=== PATIENT | male | born 1990 | race Caucasian/White ===

== ENCOUNTER 2021-03-04 18:13 | Emergency (ER) | payer OTHER, SELFPAY ==
[2021-03-04] VITALS (14 sets, daily range): BP systolic 183–216; BP diastolic 84–104; PULSE 91–117; RESP 18; O2SAT 97–100; BMI 25.2
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
--- NOTE | 2021-03-04 18:29 | DI.RAD.S_ITS ---
PROCEDURE: XR CHEST 1V INDICATIONS: trauma TECHNIQUE: One view of the chest was acquired. COMPARISON: None. FINDINGS: Surgical changes and devices: None. Lungs and pleura: Lungs are clear. No pleural effusions or pneumothorax. Mediastinum: Mediastinal contours appear normal. Heart size is normal. Bones and chest wall: No suspicious bony lesions. No displaced fractures identified. Overlying soft tissues appear unremarkable. IMPRESSION: 1. No definite acute traumatic abnormality. Dictated by: Ozzy Finch M.D. on 03/04/2021 at 18:53 Approved by: Ozzy Finch M.D. on 03/04/2021 at 18:55
--- NOTE | 2021-03-04 18:31 | DI.US.S_ITS ---
PROCEDURE: US PERIPH VENOUS LOW EXTREM RT INDICATIONS: PAIN, SWELLING, AND TRAUMA 4 DAYS AGO TECHNIQUE: Real-time imaging, as well as color and pulse Doppler interrogation, were performed of the lower extremity deep veins from the inguinal ligament to the popliteal fossa. COMPARISON: None. FINDINGS: The common femoral, femoral and popliteal veins are normally compressible, and free of intraluminal thrombus. Color and pulse Doppler demonstrate normal phasic intraluminal flow. There is normal augmentation response to distal compression maneuver. IMPRESSION: 1. No evidence of deep venous thrombosis in the right lower extremity. Dictated by: Ozzy Finch M.D. on 03/04/2021 at 19:57 Approved by: Ozzy Finch M.D. on 03/04/2021 at 19:58
[2021-03-04] MEDS: TET,DIPH,PERTUSS(ACELL),VAC/PF 0.5 ML SYRINGE IM (18:46)
[2021-03-04] MEDS: SODIUM CHLORIDE 0.9% 1,000 ML 125 ML IV (18:46)
[2021-03-04 19:08] LABS: Add Manual Diff / Slide Review NO; Basophils Absolute Auto 100 /uL (0-100); Basophils Percent Auto 0.5 % (0-2); Eosinophils Absolute Auto 200 /uL (0-450); Eosinophils Percent Auto 1.9 % (2-4); Hematocrit 31.2 % (41-53); Hemoglobin 10.4 g/dL (13.5-17.5); Lymphocytes Absolute Auto 1300 /uL (1100-4500); Lymphocytes Percent Auto 11.9 % (25-40); Mean Corpuscular HGB Conc 33.4 % (30-36); Mean Corpuscular Hemoglobin 27.7 PG (26-34); Mean Corpuscular Volume 82.9 fL (80-100); Monocytes Absolute Auto 900 /uL (0-900); Monocytes Percent Auto 8.1 % (3-14); Neutrophils Absolute Auto 8700 /uL (1500-7000); Neutrophils Percent Auto 77.6 % (50-75); Platelet Count 297 X10^3/uL (150-400); Red Blood Cell Count 3.77 X10^6/uL (4.5-5.9); Red Cell Distribution Width 12.9 % (11.6-14.8); White Blood Cell Count 11.2 X10^3/uL (4.5-11.0)
[2021-03-04 19:12] LABS: HEMOLYSIS < 15 (0-50)
[2021-03-04 19:17] LABS: Alanine Aminotransferase 17 IU/L (<50); Albumin 3.8 g/dL (3.5-5.0); Albumin Globulin Ratio 1.3 (1.0-2.8); Alkaline Phosphatase 59 U/L (38-126); Aspartate Aminotransferase 19 IU/L (17-59); BUN Creatinine Ratio 12.2 (6-22); Bilirubin Total 0.4 mg/dL (0.2-1.3); Blood Urea Nitrogen 30 mg/dL (9-20); Calcium 9.2 mg/dL (8.4-10.2); Carbon Dioxide 27 mmol/L (22-32); Chloride 97 mmol/L (98-107); Creatine Kinase 143 U/L (55-170); Estimated Glomerular Filt Rate 30.6 mL/min (>60); Globulin 2.9 g/dL (1.7-4.1); Glucose 150 mg/dL (70-100); Potassium 3.6 mmol/L (3.4-5.1); Sodium 133 mmol/L (137-145); Total Protein 6.7 g/dL (6.3-8.2)
[2021-03-04 19:19] LABS: PCO2 VBG 39.7 mmHg (45-50); PO2 VBG 68 mmHg (35-45); pH VBG 7.45 (7.33-7.43)
[2021-03-04 19:20] LABS: HCO3 VBG 28 mmol/L (23-28); Oxygen Saturation VBG 94 % (70-75); Total CO2 VBG 29 mmol/L (24-29)
[2021-03-04 19:33] LABS: CKMB % Relative Index 0.5 % (1.5-5.0); Creatine Kinase MB 0.69 ng/mL (<2.37)
[2021-03-04 19:34] LABS: Troponin I 0.034 ng/mL (0.01-0.034)
[2021-03-04 19:40] LABS: COVID19 -Nasal RAPID Negative (Negative)
--- NOTE | 2021-03-04 22:15 | DI.CT.S_ITS ---
PROCEDURE: CT HEAD/BRAIN WO CON INDICATIONS: repeat per neurosurgery TECHNIQUE: Noncontrast 4.5 mm thick angled axial sections acquired from the foramen magnum to the vertex, with coronal and sagittal reformats. For radiation dose reduction, the following was used: automated exposure control, adjustment of mA and/or kV according to patient size. COMPARISON: [facility], CT, CT HEAD/BRAIN WO CON, 03/04/2021, 18:37. FINDINGS: Image quality: Excellent. CSF spaces: Basal cisterns are patent. No extra-axial fluid collections. Ventricles are normal in size and shape. Brain: No midline shift. No intracranial masses . Small subdural hematoma tracking along the left ala of the tentorium is stable. Mckeon-white matter interface is normal. Skull and face: Calvarium and visualized facial bones are intact, without suspicious lesions. Sinuses: Visualized sinuses and mastoids are clear. IMPRESSION: Small left tentorial subdural hematoma stable compared to prior exam. Dictated by: Damaris Mei MD, PhD on 03/05/2021 at 7:06 Approved by: Damaris Mei MD, PhD on 03/05/2021 at 7:08
--- NOTE | 2021-03-04 22:15 | DI.CT.S_ITS ---
PROCEDURE: CT PEL WO CON INDICATIONS: trauma TECHNIQUE: Noncontrast 3 mm axial sections acquired through the bony pelvis, with coronal and sagittal reformatting. COMPARISON: None. FINDINGS: Image quality: Excellent. Bones: No fractures or dislocations. The hip joint spaces appear preserved. Soft tissues: No hip joint effusions. No discrete hematoma collections. No intraperitoneal free fluid within the visualized pelvis. The bladder is partially distended. There is colonic diverticulosis without acute diverticulitis. IMPRESSION: 1. No fractures identified in the pelvis. Dictated by: Ozzy Finch M.D. on 03/04/2021 at 21:53 Approved by: Ozzy Finch M.D. on 03/04/2021 at 21:54
--- NOTE | 2021-03-04 22:15 | DI.CT.S_ITS ---
PROCEDURE: CT LUMBAR SPINE WO CON INDICATIONS: trauma with midline back pain TECHNIQUE: Noncontrast 3 mm thick sections acquired from the T12 level to the sacrum. Sagittal and coronal reformats were constructed. For radiation dose reduction, the following was used: automated exposure control. COMPARISON: [facility], CT, CT PEL WO CON, 03/04/2021, 20:52. FINDINGS: Image quality: Excellent. Bones: There is preserved bony alignment. No acute vertebral body compression fractures. No subluxation. No suspicious lytic or blastic bony lesions. No pars defects. No definite spinal canal narrowing. Limited evaluation of the neural foramina on CT demonstrates no high-grade neural foraminal narrowing. Soft tissues: No retroperitoneal masses or hematomas. Visualized aorta is normal in caliber. There is colonic diverticulosis within the visualized pelvis. The bladder is partially distended. IMPRESSION: 1. No fracture or subluxation in the lumbar spine. Dictated by: Ozzy Finch M.D. on 03/04/2021 at 21:50 Approved by: Ozzy Finch M.D. on 03/04/2021 at 21:52
[2021-03-05] VITALS: PULSE 111; O2SAT 100
[2021-03-05 00:02] VITALS: PULSE 104; O2SAT 99
[2021-03-05 00:04] VITALS: BP 182/96
[2021-03-05] MEDS: ONDANSETRON 4 MG ODT PREPACK 1 BOTTLE MISC (00:13)
== END 2021-03-05 00:19 | disposition home or self-care (01) ==
PROVIDERS: Emergency Provider Emergency Medicine
DX: S06.5X9A Traumatic subdural hemorrhage with loss of consciousness of unspecified duration, initial encounter (principal); R11.2 Nausea with vomiting, unspecified; S70.11XA Contusion of right thigh, initial encounter; V29.9XXA Motorcycle rider (driver) (passenger) injured in unspecified traffic accident, initial encounter; Z23 Encounter for immunization; Z20.822 Contact with and (suspected) exposure to COVID-19
CPT/HCPCS: 36415; 70450; 71045; 72131; 72192; 80053; 82009; 82550; 82553; 82805; 84484; 85025; 87635; 90471; 93005; 93971; 96360; 96361; 99285; C9803; 90715

== ENCOUNTER → 2021-03-12 18:51 | Outpatient (CLI) | payer OTHER, SELFPAY ==
--- NOTE | 2021-03-12 | DI.CT.S_ITS ---
PROCEDURE: CT HEAD/BRAIN WO CON INDICATIONS: SUBDURAL HEMATOMA TECHNIQUE: Noncontrast 4.5 mm thick angled axial sections acquired from the foramen magnum to the vertex, with coronal and sagittal reformats. For radiation dose reduction, the following was used: automated exposure control, adjustment of mA and/or kV according to patient size. COMPARISON: [facility], CT, CT HEAD/BRAIN WO CON, 03/04/2021, 22:13. [facility], CT, CT HEAD/BRAIN WO CON, 03/04/2021, 18:37. FINDINGS: Image quality: Excellent. CSF spaces: Basal cisterns are patent. No extra-axial fluid collections. Ventricles are normal in size and shape. Brain: No midline shift. No change in the left-sided tentorial thin intracranial subdural hemorrhage. Mckeon-white matter interface is normal. Skull and face: Calvarium and visualized facial bones are intact, without suspicious lesions. Sinuses: Visualized sinuses and mastoids are clear. IMPRESSION: The prior posttraumatic thin subdural hematoma at the left tentorium is stable over time from the initial study, 03/04/21. No mass effect present, no interval increase in subdural hemorrhage identified. Dictated by: Adrián Foster M.D. on 03/13/2021 at 11:05 Approved by: Adrián Foster M.D. on 03/13/2021 at 11:08
== END ==
DX: I62.00 Nontraumatic subdural hemorrhage, unspecified (principal)
CPT/HCPCS: 70450

== ENCOUNTER 2021-05-27 02:34 | Emergency (ER) | payer OTHER, SELFPAY ==
[2021-05-27] VITALS (16 sets, daily range): BP systolic 128–167; BP diastolic 72–89; PULSE 78–107; RESP 16–22; TEMP 36.7–37.1; O2SAT 94–98; BMI 25.2
[2021-05-27] MEDS: ONDANSETRON 4 MG/2 ML INJ IV (02:51)
--- NOTE | 2021-05-27 02:52 | DI.RAD.S_ITS ---
PROCEDURE: XR CHEST 1V INDICATIONS: cough TECHNIQUE: One view of the chest was acquired. COMPARISON: [facility], CR, XR CHEST 1V, 03/04/2021, 18:31. FINDINGS: Surgical changes and devices: None. Lungs and pleura: Lungs are clear. No pleural effusions or pneumothorax. Mediastinum: Mediastinal contours appear normal. Heart size is normal. Bones and chest wall: No suspicious bony lesions. Overlying soft tissues appear unremarkable. IMPRESSION: No acute cardiopulmonary disease process. Dictated by: Damaris Mei MD, PhD on 05/27/2021 at 8:33 Approved by: Damaris Mei MD, PhD on 05/27/2021 at 8:35
--- NOTE | 2021-05-27 02:53 | ED_ITS ---
HPI - Nausea/Vomiting/Diarrhea <Fabien Hay MD - Last Filed: 05/29/21 07:14> General Chief complaint: Nausea/Vomiting/Diarrhea Stated complaint: COVID+ VOMITING X6 DAYS Time Seen by Provider: 05/27/21 02:43 Source: patient Mode of arrival: Ambulatory Limitations: no limitations History of Present Illness HPI Narrative: Patient is insulin dependent diabetic. Sent here by primary care for 6 days of intractable vomiting with fever body aches chills. Tested positive for COVID at a outlying clinic. No treatment otherwise. COVID exposure to family as well as possibly friends. Sugar levels between 200-300 average daily. Usually baseline is low 100s. Decreased urine output. Patient states has been trying to keep orally hydrated. Patient states has chronic back pain and with recent illness has made back pain worse Related Data Previous Rx's Medication Instructions Recorded ondansetron 4 mg disintegrating 4 mg PO TID-QID PRN #10 tab 03/04/21 tablet ondansetron 4 mg disintegrating 4 mg PO Q8H PRN #10 tab 05/27/21 tablet metoclopramide HCl 10 mg tablet 10 mg PO Q6H PRN #20 tab 05/28/21 (Reglan) ondansetron 4 mg disintegrating 4 mg PO Q8H PRN #10 tab 05/28/21 tablet Allergies Allergy/AdvReac Type Severity Reaction Status Date / Time No Known Drug Allergies Allergy Verified 05/28/21 19:16 Review of Systems <Fabien Hay MD - Last Filed: 05/29/21 07:14> Review of Systems Narrative: GENERAL: Complain chills, fatigue, malaise, fever, sweats. HEENT: Denies sinus pain, ear pain, sore throat RESPIRATORY: Denies dyspnea, complains of cough CARDIOVASCULAR: Denies chest pain, palpitations GASTROINTESTINAL: Complaint nausea, vomiting, denies abdominal pain : Denies dysuria, frequency, hematuria, complaints decreased urination MUSCULOSKELETAL: Complains muscle or bony pain SKIN: Denies rash, skin lesions NEUROLOGIC: Denies weakness, numbness ROS Unobtainable: All systems reviewed & are unremarkable except as noted in HPI and below Patient History <Fabien Hay MD - Last Filed: 05/29/21 07:14> Social History Smoking Status: Never smoker Smoking Status: Never smoker alcohol intake frequency: 0-2 drinks per day Substance Use Type: does not use Exam <Fabien Hay MD - Last Filed: 05/29/21 07:14> Narrative Exam Narrative: GENERAL: in no distress, not toxic not dyspneic HEAD: Normocephalic. EYES: Pupils equal round No scleral icterus. No injection no discharge ENT: Mucous membranes moist. NECK: Trachea midline. CARDIOVASCULAR: Regular rate and rhythm without murmurs RESPIRATORY: Clear to auscultation. Breath sounds equal bilaterally. No wheezes, rales, or rhonchi. GASTROINTESTINAL: Abdomen soft, non-tender EXTREMITIES: No gross deformities. BACK: No flank tenderness. NEURO: AOx4. SKIN: Warm and dry PSYCH: Not anxious, is cooperative Initial Vital Signs Initial Vital Signs: Vital Signs Temperature 98.7 F 05/27/21 02:45 Pulse Rate 107 H 05/27/21 02:45 Respiratory Rate 22 05/27/21 02:45 Blood Pressure 128/81 05/27/21 02:45 Pulse Oximetry 95 05/27/21 02:45 <Archie Orantes DO - Last Filed: 05/27/21 08:52> Initial Vital Signs Initial Vital Signs: Vital Signs Temperature 98.7 F 05/27/21 02:45 Pulse Rate 107 H 05/27/21 02:45 Respiratory Rate 22 05/27/21 02:45 Blood Pressure 128/81 05/27/21 02:45 Pulse Oximetry 95 05/27/21 02:45 Course <Fabien Hay MD - Last Filed: 05/29/21 07:14> Course Course Narrative: No new issues during course of stay. Nausea resolved. Heart rate improved. 7:00 a.m.. Sign out to Dr. Orantes, waiting for improvement in voiding. 4 L normal saline started, needs p.o. challenge afterwards Orders Ordered: Discontinued Medications Diphenhydramine HCl (Diphenhydramine 50 Mg/Ml Vial) 12.5 mg IV NOW ONE Stop: 05/27/21 05:42 Last Admin: 05/27/21 05:50 Dose: 12.5 mg Documented by: JONES Sodium Chloride (Normal Saline 0.9%) 1,000 mls @ 1,000 mls/hr IV BOLUS ONE Stop: 05/27/21 03:51 Last Infusion: 05/27/21 04:04 Dose: 0 mls/hr Documented by: Admin: 05/27/21 03:04 Dose: 1,000 mls/hr Documented by: GENESISAG Sodium Chloride (Normal Saline 0.9%) 1,000 mls @ 1,000 mls/hr IV BOLUS ONE Stop: 05/27/21 04:02 Last Infusion: 05/27/21 04:26 Dose: 0 mls/hr Documented by: Admin: 05/27/21 03:25 Dose: 1,000 mls/hr Documented by: YINA Sodium Chloride (Normal Saline 0.9%) 1,000 mls @ 1,000 mls/hr IV BOLUS ONE Stop: 05/27/21 05:35 Last Infusion: 05/27/21 05:50 Dose: 0 mls/hr Documented by: Admin: 05/27/21 04:45 Dose: 1,000 mls/hr Documented by: YINA Sodium Chloride (Normal Saline 0.9%) 1,000 mls @ 1,000 mls/hr IV BOLUS ONE Stop: 05/27/21 07:49 Last Infusion: 05/27/21 08:02 Dose: 0 mls/hr Documented by: Admin: 05/27/21 06:56 Dose: 1,000 mls/hr Documented by: JONES Sodium Chloride (Normal Saline 0.9%) 1,000 mls @ 1,000 mls/hr IV BOLUS ONE Stop: 05/27/21 07:49 Last Admin: 05/27/21 08:03 Dose: Not Given Documented by: JENNIFER Ketorolac Tromethamine (Ketorolac 30 Mg/Ml Vial) 15 mg IV NOW ONE Stop: 05/27/21 03:26 Last Admin: 05/27/21 03:28 Dose: 15 mg Documented by: YINA Metoclopramide HCl (Metoclopramide 10 Mg/2 Ml Inj) 10 mg IV NOW ONE Stop: 05/27/21 05:43 Last Admin: 05/27/21 05:50 Dose: 10 mg Documented by: JONES Morphine Sulfate (Morphine 4 Mg/Ml Inj) 4 mg IV NOW ONE Stop: 05/27/21 04:22 Last Admin: 05/27/21 04:25 Dose: 4 mg Documented by: YINA Ondansetron HCl (Ondansetron 4 Mg Odt) 4 mg SL NOW ONE Stop: 05/27/21 02:45 Last Admin: 05/27/21 03:39 Dose: Not Given Documented by: YINA Ondansetron HCl (Ondansetron 4 Mg/2 Ml Inj) 4 mg IV NOW ONE Stop: 05/27/21 02:49 Last Admin: 05/27/21 02:51 Dose: 4 mg Documented by: JONES Reevaluation(s) Reevaluation #1: Patient resting comfortably. No nausea or vomiting. Heart rate improved after IV fluids Time: 04:27 Vital Signs Vital signs: Vital Signs - 8 hr 05/27/21 02:45 05/27/21 03:00 05/27/21 03:30 Temperature 98.7 F Pulse Rate 107 H 91 H 98 H Respiratory Rate 22 18 18 Blood Pressure 128/81 167/80 H 153/72 H Pulse Oximetry 95 94 97 05/27/21 04:00 05/27/21 04:30 05/27/21 05:00 Temperature Pulse Rate 83 87 79 Respiratory Rate 16 Blood Pressure 159/86 H 146/83 H 152/80 H Pulse Oximetry 97 96 95 05/27/21 05:30 05/27/21 06:00 05/27/21 06:30 Temperature Pulse Rate 83 82 78 Respiratory Rate 16 18 Blood Pressure 149/89 H 154/80 H 144/79 H Pulse Oximetry 96 95 95 05/27/21 06:51 05/27/21 07:00 05/27/21 07:30 Temperature 98.1 F Pulse Rate 79 79 Respiratory Rate Blood Pressure Pulse Oximetry 96 96 05/27/21 08:00 05/27/21 08:30 Temperature Pulse Rate 78 82 Respiratory Rate Blood Pressure Pulse Oximetry 95 95 <Archie Orantes DO - Last Filed: 05/27/21 08:52> Orders Ordered: Discontinued Medications Diphenhydramine HCl (Diphenhydramine 50 Mg/Ml Vial) 12.5 mg IV NOW ONE Stop: 05/27/21 05:42 Last Admin: 05/27/21 05:50 Dose: 12.5 mg Documented by: JONES Sodium Chloride (Normal Saline 0.9%) 1,000 mls @ 1,000 mls/hr IV BOLUS ONE Stop: 05/27/21 03:51 Last Infusion: 05/27/21 04:04 Dose: 0 mls/hr Documented by: Admin: 05/27/21 03:04 Dose: 1,000 mls/hr Documented by: YINA Sodium Chloride (Normal Saline 0.9%) 1,000 mls @ 1,000 mls/hr IV BOLUS ONE Stop: 05/27/21 04:02 Last Infusion: 05/27/21 04:26 Dose: 0 mls/hr Documented by: Admin: 05/27/21 03:25 Dose: 1,000 mls/hr Documented by: YINA Sodium Chloride (Normal Saline 0.9%) 1,000 mls @ 1,000 mls/hr IV BOLUS ONE Stop: 05/27/21 05:35 Last Infusion: 05/27/21 05:50 Dose: 0 mls/hr Documented by: Admin: 05/27/21 04:45 Dose: 1,000 mls/hr Documented by: YINA Sodium Chloride (Normal Saline 0.9%) 1,000 mls @ 1,000 mls/hr IV BOLUS ONE Stop: 05/27/21 07:49 Last Infusion: 05/27/21 08:02 Dose: 0 mls/hr Documented by: Admin: 05/27/21 06:56 Dose: 1,000 mls/hr Documented by: JONES Sodium Chloride (Normal Saline 0.9%) 1,000 mls @ 1,000 mls/hr IV BOLUS ONE Stop: 05/27/21 07:49 Last Admin: 05/27/21 08:03 Dose: Not Given Documented by: JENNIFER Ketorolac Tromethamine (Ketorolac 30 Mg/Ml Vial) 15 mg IV NOW ONE Stop: 05/27/21 03:26 Last Admin: 05/27/21 03:28 Dose: 15 mg Documented by: YINA Metoclopramide HCl (Metoclopramide 10 Mg/2 Ml Inj) 10 mg IV NOW ONE Stop: 05/27/21 05:43 Last Admin: 05/27/21 05:50 Dose: 10 mg Documented by: KWOYSKI Morphine Sulfate (Morphine 4 Mg/Ml Inj) 4 mg IV NOW ONE Stop: 05/27/21 04:22 Last Admin: 05/27/21 04:25 Dose: 4 mg Documented by: YINA Ondansetron HCl (Ondansetron 4 Mg Odt) 4 mg SL NOW ONE Stop: 05/27/21 02:45 Last Admin: 05/27/21 03:39 Dose: Not Given Documented by: YINA Ondansetron HCl (Ondansetron 4 Mg/2 Ml Inj) 4 mg IV NOW ONE Stop: 05/27/21 02:49 Last Admin: 05/27/21 02:51 Dose: 4 mg Documented by: JONES Vital Signs Vital signs: Vital Signs - 8 hr 05/27/21 02:45 05/27/21 03:00 05/27/21 03:30 Temperature 98.7 F Pulse Rate 107 H 91 H 98 H Respiratory Rate 22 18 18 Blood Pressure 128/81 167/80 H 153/72 H Pulse Oximetry 95 94 97 05/27/21 04:00 05/27/21 04:30 05/27/21 05:00 Temperature Pulse Rate 83 87 79 Respiratory Rate 16 Blood Pressure 159/86 H 146/83 H 152/80 H Pulse Oximetry 97 96 95 05/27/21 05:30 05/27/21 06:00 05/27/21 06:30 Temperature Pulse Rate 83 82 78 Respiratory Rate 16 18 Blood Pressure 149/89 H 154/80 H 144/79 H Pulse Oximetry 96 95 95 05/27/21 06:51 05/27/21 07:00 05/27/21 07:30 Temperature 98.1 F Pulse Rate 79 79 Respiratory Rate Blood Pressure Pulse Oximetry 96 96 05/27/21 08:00 05/27/21 08:30 Temperature Pulse Rate 78 82 Respiratory Rate Blood Pressure Pulse Oximetry 95 95 MDM - Nausea/Vomiting/Diarrhea <Fabien Hay MD - Last Filed: 05/29/21 07:14> Differential Diagnosis Differential diagnosis: Likely dehydration and other (COVID infection) Lab Data Result diagrams: 05/27/21 02:49 05/27/21 05:50 Labs: Lab Results 05/27/21 05/27/21 05/27/21 Range/Units 02:43 02:45 02:49 WBC 6.4 (4.5-11.0) X10^3/uL RBC 4.65 (4.5-5.9) X10^6/uL Hgb 12.5 L (13.5-17.5) g/dL Hct 37.9 L (41-53) % MCV 81.6 (80-100) fL MCH 27.0 (26-34) PG MCHC 33.1 (30-36) % RDW 13.5 (11.6-14.8) % Plt Count 272 (150-400) X10^3/uL Neut % (Auto) 78.8 H (50-75) % Lymph % (Auto) 12.1 L (25-40) % [place] % (Auto) 8.7 (3-14) % Eos % (Auto) 0.1 L (2-4) % Baso % (Auto) 0.3 (0-2) % Neut # (Auto) 5100 (6556-0785) /uL Lymph # (Auto) 800 L (9092-4832) /uL [place] # (Auto) 600 (0-900) /uL Eos # (Auto) 0 (0-450) /uL Baso # (Auto) 0 (0-100) /uL Sodium (137-145) mmol/L Potassium (3.4-5.1) mmol/L Chloride (98-107) mmol/L Carbon Dioxide (22-32) mmol/L BUN (9-20) mg/dL Creatinine (0.66-1.25) mg/dL Estimated GFR (>60) mL/min BUN/Creatinine Ratio (6-22) Glucose (70-100) mg/dL Calcium (8.4-10.2) mg/dL Total Bilirubin (0.2-1.3) mg/dL AST (17-59) IU/L ALT (<50) IU/L Alkaline Phosphatase (38-126) U/L Total Protein (6.3-8.2) g/dL Albumin (3.5-5.0) g/dL Globulin (1.7-4.1) g/dL Albumin/Globulin Ratio (1.0-2.8) Urine Color Urine Appearance Urine pH (4.5-8.0) Ur Specific [place] (1.000-1.035) Urine Protein (Negative) Urine Glucose (UA) (Negative) g/dL Urine Ketones (NEGATIVE) Urine Occult Blood (Negative) Urine Nitrate (Negative) Urine Bilirubin (NEGATIVE) Urine Urobilinogen (0.2) E.U./dL Ur Leukocyte Esterase (NEGATIVE) Urine RBC (0-5/HPF) Urine WBC (0-5/HPF) Ur Squamous Epith Cells (0-5/HPF) Urine Bacteria (None) Granular Casts (None) Ur Culture Indicated? U Opiates 300ng/mL cut (Negative) Ur Oxycodone Screen (Negative) Urine Methadone Screen (Negative) Ur Barbiturates Screen (Negative) U Tricyclic Antidepress (Negative) Ur Phencyclidine Scrn (Negative) Ur Amphetamines Screen (Negative) U Methamphetamines Scrn (Negative) Ur MDMA Scrn (Ecstasy) (Negative) U Benzodiazepines Scrn (Negative) Urine Cocaine Screen (Negative) U Marijuana (THC) Screen (Negative) Ketones (<0.27) mmol/L Chlamy pneumoniae PCR Not detected (Not Detect) Adenovirus (PCR) Not detected (Not Detect) B. pertussis DNA (PCR) Not detected (Not Detecte) B.parapertussis DNA PCR Not detected (Not Detecte) Coronavirus OC43 (PCR) Not detected (Not Detect) Coronavirus HKU1 (PCR) Not detected (Not Detect) Coronavirus 229E (PCR) Not detected (Not Detect) SARS-CoV-2 (PCR) Positive H Detected H (Negative) Coronavirus NL63 (PCR) Not detected (Not Detect) Human Metapneumovir PCR Not detected (Not Detect) Influenza Type A (PCR) Not detected (Not Detect) Influenza Type B (PCR) Not detected (Not Detect) M. pneumoniae (PCR) Not detected (Not Detect) Parainfluenza 1 (PCR) Not detected (Not Detect) Parainfluenza 2 (PCR) Not detected (Not Detect) Parainfluenza 3 (PCR) Not detected (Not Detect) Parainfluenza 4 (PCR) Not detected (Not Detect) RSV (PCR) Not detected (Not Detect) Entero/Rhino (PCR) Not detected (Not Detect) 05/27/21 05/27/21 05/27/21 Range/Units 02:49 05:50 06:50 WBC (4.5-11.0) X10^3/uL RBC (4.5-5.9) X10^6/uL Hgb (13.5-17.5) g/dL Hct (41-53) % MCV (80-100) fL MCH (26-34) PG MCHC (30-36) % RDW (11.6-14.8) % Plt Count (150-400) X10^3/uL Neut % (Auto) (50-75) % Lymph % (Auto) (25-40) % [place] % (Auto) (3-14) % Eos % (Auto) (2-4) % Baso % (Auto) (0-2) % Neut # (Auto) (1132-8354) /uL Lymph # (Auto) (5342-8867) /uL [place] # (Auto) (0-900) /uL Eos # (Auto) (0-450) /uL Baso # (Auto) (0-100) /uL Sodium 133 L 134 L (137-145) mmol/L Potassium 4.2 4.0 (3.4-5.1) mmol/L Chloride 93 L 104 (98-107) mmol/L Carbon Dioxide 29 23 (22-32) mmol/L BUN 33 H 32 H (9-20) mg/dL Creatinine 3.30 H 2.62 H (0.66-1.25) mg/dL Estimated GFR 21.8 L 28.5 L (>60) mL/min BUN/Creatinine Ratio 10.0 12.2 (6-22) Glucose 179 H 112 H (70-100) mg/dL Calcium 8.8 7.2 L (8.4-10.2) mg/dL Total Bilirubin 0.4 (0.2-1.3) mg/dL AST 60 H (17-59) IU/L ALT 60 H (<50) IU/L Alkaline Phosphatase 53 (38-126) U/L Total Protein 6.9 (6.3-8.2) g/dL Albumin 3.9 (3.5-5.0) g/dL Globulin 3.0 (1.7-4.1) g/dL Albumin/Globulin Ratio 1.3 (1.0-2.8) Urine Color Yellow Urine Appearance Sl cloudy Urine pH 5.5 (4.5-8.0) Ur Specific [place] 1.020 (1.000-1.035) Urine Protein 3+ H (Negative) Urine Glucose (UA) 1+ H (Negative) g/dL Urine Ketones Trace H (NEGATIVE) Urine Occult Blood 2+ H (Negative) Urine Nitrate Negative (Negative) Urine Bilirubin Negative (NEGATIVE) Urine Urobilinogen 0.2 (0.2) E.U./dL Ur Leukocyte Esterase Negative (NEGATIVE) Urine RBC 0-1/hpf (0-5/HPF) Urine WBC 5-10/hpf H (0-5/HPF) Ur Squamous Epith Cells 1-5 /hpf (0-5/HPF) Urine Bacteria Many (>30) H (None) Granular Casts 5-10/lpf (None) Ur Culture Indicated? Specimen cultured U Opiates 300ng/mL cut (Negative) Ur Oxycodone Screen (Negative) Urine Methadone Screen (Negative) Ur Barbiturates Screen (Negative) U Tricyclic Antidepress (Negative) Ur Phencyclidine Scrn (Negative) Ur Amphetamines Screen (Negative) U Methamphetamines Scrn (Negative) Ur MDMA Scrn (Ecstasy) (Negative) U Benzodiazepines Scrn (Negative) Urine Cocaine Screen (Negative) U Marijuana (THC) Screen (Negative) Ketones 0.67 H (<0.27) mmol/L Chlamy pneumoniae PCR (Not Detect) Adenovirus (PCR) (Not Detect) B. pertussis DNA (PCR) (Not Detecte) B.parapertussis DNA PCR (Not Detecte) Coronavirus OC43 (PCR) (Not Detect) Coronavirus HKU1 (PCR) (Not Detect) Coronavirus 229E (PCR) (Not Detect) SARS-CoV-2 (PCR) (Negative) Coronavirus NL63 (PCR) (Not Detect) Human Metapneumovir PCR (Not Detect) Influenza Type A (PCR) (Not Detect) Influenza Type B (PCR) (Not Detect) M. pneumoniae (PCR) (Not Detect) Parainfluenza 1 (PCR) (Not Detect) Parainfluenza 2 (PCR) (Not Detect) Parainfluenza 3 (PCR) (Not Detect) Parainfluenza 4 (PCR) (Not Detect) RSV (PCR) (Not Detect) Entero/Rhino (PCR) (Not Detect) 05/27/21 Range/Units 06:50 WBC (4.5-11.0) X10^3/uL RBC (4.5-5.9) X10^6/uL Hgb (13.5-17.5) g/dL Hct (41-53) % MCV (80-100) fL MCH (26-34) PG MCHC (30-36) % RDW (11.6-14.8) % Plt Count (150-400) X10^3/uL Neut % (Auto) (50-75) % Lymph % (Auto) (25-40) % [place] % (Auto) (3-14) % Eos % (Auto) (2-4) % Baso % (Auto) (0-2) % Neut # (Auto) (7050-1190) /uL Lymph # (Auto) (6420-9654) /uL [place] # (Auto) (0-900) /uL Eos # (Auto) (0-450) /uL Baso # (Auto) (0-100) /uL Sodium (137-145) mmol/L Potassium (3.4-5.1) mmol/L Chloride (98-107) mmol/L Carbon Dioxide (22-32) mmol/L BUN (9-20) mg/dL Creatinine (0.66-1.25) mg/dL Estimated GFR (>60) mL/min BUN/Creatinine Ratio (6-22) Glucose (70-100) mg/dL Calcium (8.4-10.2) mg/dL Total Bilirubin (0.2-1.3) mg/dL AST (17-59) IU/L ALT (<50) IU/L Alkaline Phosphatase (38-126) U/L Total Protein (6.3-8.2) g/dL Albumin (3.5-5.0) g/dL Globulin (1.7-4.1) g/dL Albumin/Globulin Ratio (1.0-2.8) Urine Color Urine Appearance Urine pH (4.5-8.0) Ur Specific [place] (1.000-1.035) Urine Protein (Negative) Urine Glucose (UA) (Negative) g/dL Urine Ketones (NEGATIVE) Urine Occult Blood (Negative) Urine Nitrate (Negative) Urine Bilirubin (NEGATIVE) Urine Urobilinogen (0.2) E.U./dL Ur Leukocyte Esterase (NEGATIVE) Urine RBC (0-5/HPF) Urine WBC (0-5/HPF) Ur Squamous Epith Cells (0-5/HPF) Urine Bacteria (None) Granular Casts (None) Ur Culture Indicated? U Opiates 300ng/mL cut Positive H (Negative) Ur Oxycodone Screen Negative (Negative) Urine Methadone Screen Negative (Negative) Ur Barbiturates Screen Negative (Negative) U Tricyclic Antidepress Negative (Negative) Ur Phencyclidine Scrn Negative (Negative) Ur Amphetamines Screen Negative (Negative) U Methamphetamines Scrn Negative (Negative) Ur MDMA Scrn (Ecstasy) Negative (Negative) U Benzodiazepines Scrn Negative (Negative) Urine Cocaine Screen Negative (Negative) U Marijuana (THC) Screen Negative (Negative) Ketones (<0.27) mmol/L Chlamy pneumoniae PCR (Not Detect) Adenovirus (PCR) (Not Detect) B. pertussis DNA (PCR) (Not Detecte) B.parapertussis DNA PCR (Not Detecte) Coronavirus OC43 (PCR) (Not Detect) Coronavirus HKU1 (PCR) (Not Detect) Coronavirus 229E (PCR) (Not Detect) SARS-CoV-2 (PCR) (Negative) Coronavirus NL63 (PCR) (Not Detect) Human Metapneumovir PCR (Not Detect) Influenza Type A (PCR) (Not Detect) Influenza Type B (PCR) (Not Detect) M. pneumoniae (PCR) (Not Detect) Parainfluenza 1 (PCR) (Not Detect) Parainfluenza 2 (PCR) (Not Detect) Parainfluenza 3 (PCR) (Not Detect) Parainfluenza 4 (PCR) (Not Detect) RSV (PCR) (Not Detect) Entero/Rhino (PCR) (Not Detect) Point of Care Testing Glucose POC 189 Imaging Data Chest x-ray: Radiologist's Impression: Small area of atelectasis or minimal consolidation left lower lung MDM Narrative Medical decision making narrative: Appropriate for discharge home. Exam reassuring. Not toxic. Labs tonight compared to previous near baseline. Does show some likely dehydration with renal function. Toradol and morphine given for chronic back pain , renal function noted however 3 L normal saline given for rehydration/renal protection. Not toxic at discharge. 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 No fever here. White cell count normal. Bicarb and acetone levels reassuring. As well as glucose level. Not in DKA. Repeat renal function shows improvement in GFR as well as creatinine. Essentially at baseline <Archie OrantesDO - Last Filed: 05/27/21 08:52> Lab Data Labs: Lab Results 05/27/21 05/27/21 05/27/21 Range/Units 02:43 02:45 02:49 WBC 6.4 (4.5-11.0) X10^3/uL RBC 4.65 (4.5-5.9) X10^6/uL Hgb 12.5 L (13.5-17.5) g/dL Hct 37.9 L (41-53) % MCV 81.6 (80-100) fL MCH 27.0 (26-34) PG MCHC 33.1 (30-36) % RDW 13.5 (11.6-14.8) % Plt Count 272 (150-400) X10^3/uL Neut % (Auto) 78.8 H (50-75) % Lymph % (Auto) 12.1 L (25-40) % [place] % (Auto) 8.7 (3-14) % Eos % (Auto) 0.1 L (2-4) % Baso % (Auto) 0.3 (0-2) % Neut # (Auto) 5100 (2140-0804) /uL Lymph # (Auto) 800 L (3802-1501) /uL [place] # (Auto) 600 (0-900) /uL Eos # (Auto) 0 (0-450) /uL Baso # (Auto) 0 (0-100) /uL Sodium (137-145) mmol/L Potassium (3.4-5.1) mmol/L Chloride (98-107) mmol/L Carbon Dioxide (22-32) mmol/L BUN (9-20) mg/dL Creatinine (0.66-1.25) mg/dL Estimated GFR (>60) mL/min BUN/Creatinine Ratio (6-22) Glucose (70-100) mg/dL Calcium (8.4-10.2) mg/dL Total Bilirubin (0.2-1.3) mg/dL AST (17-59) IU/L ALT (<50) IU/L Alkaline Phosphatase (38-126) U/L Total Protein (6.3-8.2) g/dL Albumin (3.5-5.0) g/dL Globulin (1.7-4.1) g/dL Albumin/Globulin Ratio (1.0-2.8) Urine Color Urine Appearance Urine pH (4.5-8.0) Ur Specific [place] (1.000-1.035) Urine Protein (Negative) Urine Glucose (UA) (Negative) g/dL Urine Ketones (NEGATIVE) Urine Occult Blood (Negative) Urine Nitrate (Negative) Urine Bilirubin (NEGATIVE) Urine Urobilinogen (0.2) E.U./dL Ur Leukocyte Esterase (NEGATIVE) Urine RBC (0-5/HPF) Urine WBC (0-5/HPF) Ur Squamous Epith Cells (0-5/HPF) Urine Bacteria (None) Granular Casts (None) Ur Culture Indicated? U Opiates 300ng/mL cut (Negative) Ur Oxycodone Screen (Negative) Urine Methadone Screen (Negative) Ur Barbiturates Screen (Negative) U Tricyclic Antidepress (Negative) Ur Phencyclidine Scrn (Negative) Ur Amphetamines Screen (Negative) U Methamphetamines Scrn (Negative) Ur MDMA Scrn (Ecstasy) (Negative) U Benzodiazepines Scrn (Negative) Urine Cocaine Screen (Negative) U Marijuana (THC) Screen (Negative) Ketones (<0.27) mmol/L Chlamy pneumoniae PCR Not detected (Not Detect) Adenovirus (PCR) Not detected (Not Detect) B. pertussis DNA (PCR) Not detected (Not Detecte) B.parapertussis DNA PCR Not detected (Not Detecte) Coronavirus OC43 (PCR) Not detected (Not Detect) Coronavirus HKU1 (PCR) Not detected (Not Detect) Coronavirus 229E (PCR) Not detected (Not Detect) SARS-CoV-2 (PCR) Positive H Detected H (Negative) Coronavirus NL63 (PCR) Not detected (Not Detect) Human Metapneumovir PCR Not detected (Not Detect) Influenza Type A (PCR) Not detected (Not Detect) Influenza Type B (PCR) Not detected (Not Detect) M. pneumoniae (PCR) Not detected (Not Detect) Parainfluenza 1 (PCR) Not detected (Not Detect) Parainfluenza 2 (PCR) Not detected (Not Detect) Parainfluenza 3 (PCR) Not detected (Not Detect) Parainfluenza 4 (PCR) Not detected (Not Detect) RSV (PCR) Not detected (Not Detect) Entero/Rhino (PCR) Not detected (Not Detect) 05/27/21 05/27/21 05/27/21 Range/Units 02:49 05:50 06:50 WBC (4.5-11.0) X10^3/uL RBC (4.5-5.9) X10^6/uL Hgb (13.5-17.5) g/dL Hct (41-53) % MCV (80-100) fL MCH (26-34) PG MCHC (30-36) % RDW (11.6-14.8) % Plt Count (150-400) X10^3/uL Neut % (Auto) (50-75) % Lymph % (Auto) (25-40) % [place] % (Auto) (3-14) % Eos % (Auto) (2-4) % Baso % (Auto) (0-2) % Neut # (Auto) (7901-5619) /uL Lymph # (Auto) (5674-7762) /uL [place] # (Auto) (0-900) /uL Eos # (Auto) (0-450) /uL Baso # (Auto) (0-100) /uL Sodium 133 L 134 L (137-145) mmol/L Potassium 4.2 4.0 (3.4-5.1) mmol/L Chloride 93 L 104 (98-107) mmol/L Carbon Dioxide 29 23 (22-32) mmol/L BUN 33 H 32 H (9-20) mg/dL Creatinine 3.30 H 2.62 H (0.66-1.25) mg/dL Estimated GFR 21.8 L 28.5 L (>60) mL/min BUN/Creatinine Ratio 10.0 12.2 (6-22) Glucose 179 H 112 H (70-100) mg/dL Calcium 8.8 7.2 L (8.4-10.2) mg/dL Total Bilirubin 0.4 (0.2-1.3) mg/dL AST 60 H (17-59) IU/L ALT 60 H (<50) IU/L Alkaline Phosphatase 53 (38-126) U/L Total Protein 6.9 (6.3-8.2) g/dL Albumin 3.9 (3.5-5.0) g/dL Globulin 3.0 (1.7-4.1) g/dL Albumin/Globulin Ratio 1.3 (1.0-2.8) Urine Color Yellow Urine Appearance Sl cloudy Urine pH 5.5 (4.5-8.0) Ur Specific [place] 1.020 (1.000-1.035) Urine Protein 3+ H (Negative) Urine Glucose (UA) 1+ H (Negative) g/dL Urine Ketones Trace H (NEGATIVE) Urine Occult Blood 2+ H (Negative) Urine Nitrate Negative (Negative) Urine Bilirubin Negative (NEGATIVE) Urine Urobilinogen 0.2 (0.2) E.U./dL Ur Leukocyte Esterase Negative (NEGATIVE) Urine RBC 0-1/hpf (0-5/HPF) Urine WBC 5-10/hpf H (0-5/HPF) Ur Squamous Epith Cells 1-5 /hpf (0-5/HPF) Urine Bacteria Many (>30) H (None) Granular Casts 5-10/lpf (None) Ur Culture Indicated? Specimen cultured U Opiates 300ng/mL cut (Negative) Ur Oxycodone Screen (Negative) Urine Methadone Screen (Negative) Ur Barbiturates Screen (Negative) U Tricyclic Antidepress (Negative) Ur Phencyclidine Scrn (Negative) Ur Amphetamines Screen (Negative) U Methamphetamines Scrn (Negative) Ur MDMA Scrn (Ecstasy) (Negative) U Benzodiazepines Scrn (Negative) Urine Cocaine Screen (Negative) U Marijuana (THC) Screen (Negative) Ketones 0.67 H (<0.27) mmol/L Chlamy pneumoniae PCR (Not Detect) Adenovirus (PCR) (Not Detect) B. pertussis DNA (PCR) (Not Detecte) B.parapertussis DNA PCR (Not Detecte) Coronavirus OC43 (PCR) (Not Detect) Coronavirus HKU1 (PCR) (Not Detect) Coronavirus 229E (PCR) (Not Detect) SARS-CoV-2 (PCR) (Negative) Coronavirus NL63 (PCR) (Not Detect) Human Metapneumovir PCR (Not Detect) Influenza Type A (PCR) (Not Detect) Influenza Type B (PCR) (Not Detect) M. pneumoniae (PCR) (Not Detect) Parainfluenza 1 (PCR) (Not Detect) Parainfluenza 2 (PCR) (Not Detect) Parainfluenza 3 (PCR) (Not Detect) Parainfluenza 4 (PCR) (Not Detect) RSV (PCR) (Not Detect) Entero/Rhino (PCR) (Not Detect) 05/27/21 Range/Units 06:50 WBC (4.5-11.0) X10^3/uL RBC (4.5-5.9) X10^6/uL Hgb (13.5-17.5) g/dL Hct (41-53) % MCV (80-100) fL MCH (26-34) PG MCHC (30-36) % RDW (11.6-14.8) % Plt Count (150-400) X10^3/uL Neut % (Auto) (50-75) % Lymph % (Auto) (25-40) % [place] % (Auto) (3-14) % Eos % (Auto) (2-4) % Baso % (Auto) (0-2) % Neut # (Auto) (2179-3821) /uL Lymph # (Auto) (1113-8945) /uL [place] # (Auto) (0-900) /uL Eos # (Auto) (0-450) /uL Baso # (Auto) (0-100) /uL Sodium (137-145) mmol/L Potassium (3.4-5.1) mmol/L Chloride (98-107) mmol/L Carbon Dioxide (22-32) mmol/L BUN (9-20) mg/dL Creatinine (0.66-1.25) mg/dL Estimated GFR (>60) mL/min BUN/Creatinine Ratio (6-22) Glucose (70-100) mg/dL Calcium (8.4-10.2) mg/dL Total Bilirubin (0.2-1.3) mg/dL AST (17-59) IU/L ALT (<50) IU/L Alkaline Phosphatase (38-126) U/L Total Protein (6.3-8.2) g/dL Albumin (3.5-5.0) g/dL Globulin (1.7-4.1) g/dL Albumin/Globulin Ratio (1.0-2.8) Urine Color Urine Appearance Urine pH (4.5-8.0) Ur Specific [place] (1.000-1.035) Urine Protein (Negative) Urine Glucose (UA) (Negative) g/dL Urine Ketones (NEGATIVE) Urine Occult Blood (Negative) Urine Nitrate (Negative) Urine Bilirubin (NEGATIVE) Urine Urobilinogen (0.2) E.U./dL Ur Leukocyte Esterase (NEGATIVE) Urine RBC (0-5/HPF) Urine WBC (0-5/HPF) Ur Squamous Epith Cells (0-5/HPF) Urine Bacteria (None) Granular Casts (None) Ur Culture Indicated? U Opiates 300ng/mL cut Positive H (Negative) Ur Oxycodone Screen Negative (Negative) Urine Methadone Screen Negative (Negative) Ur Barbiturates Screen Negative (Negative) U Tricyclic Antidepress Negative (Negative) Ur Phencyclidine Scrn Negative (Negative) Ur Amphetamines Screen Negative (Negative) U Methamphetamines Scrn Negative (Negative) Ur MDMA Scrn (Ecstasy) Negative (Negative) U Benzodiazepines Scrn Negative (Negative) Urine Cocaine Screen Negative (Negative) U Marijuana (THC) Screen Negative (Negative) Ketones (<0.27) mmol/L Chlamy pneumoniae PCR (Not Detect) Adenovirus (PCR) (Not Detect) B. pertussis DNA (PCR) (Not Detecte) B.parapertussis DNA PCR (Not Detecte) Coronavirus OC43 (PCR) (Not Detect) Coronavirus HKU1 (PCR) (Not Detect) Coronavirus 229E (PCR) (Not Detect) SARS-CoV-2 (PCR) (Negative) Coronavirus NL63 (PCR) (Not Detect) Human Metapneumovir PCR (Not Detect) Influenza Type A (PCR) (Not Detect) Influenza Type B (PCR) (Not Detect) M. pneumoniae (PCR) (Not Detect) Parainfluenza 1 (PCR) (Not Detect) Parainfluenza 2 (PCR) (Not Detect) Parainfluenza 3 (PCR) (Not Detect) Parainfluenza 4 (PCR) (Not Detect) RSV (PCR) (Not Detect) Entero/Rhino (PCR) (Not Detect) Point of Care Testing Glucose POC 189 MDM Narrative Medical decision making narrative: Appropriate for discharge home. Exam reassuring. Not toxic. Labs tonight compared to previous near baseline. Does show some likely dehydration with renal function. Toradol and morphine given for chronic back pain , renal function noted however 3 L normal saline given for rehydration/renal protection. Not toxic at discharge. 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 No fever here. White cell count normal. Bicarb and acetone levels reassuring. As well as glucose level. Not in DKA. Repeat renal function shows improvement in GFR as well as creatinine. Essentially at baseline Dr Orantes: Received turned over. Reviewed patient's history and physical. Performed my own independent examination. Patient is not in DKA. Has received 4 L of normal saline. Is tolerating oral intake. Has urinated for us here in the ER although it has been a small amount. Patient's bladder scan shows 189 cc. Patient not retaining urine. Given the fact that he can tolerate oral intake will discharge home. He was given nausea medication. No indication for admission to the hospital. He is also COVID positive. He was given return precautions and follow-up instructions. He expressed understanding and agreement. Discharge Plan Departure Patient Disposition: Home Clinical Impression: COVID-19 virus infection Instructions: DI for Dehydration -- Adult, DI for Vomiting -- Adult, DI for COVID-19 (Suspected or Confirmed ) Activity Restrictions/Additional Instructions: No driving operate machinery is morning. Keep well hydrated. Continue medication. See family doctor this week for recheck. Return if worse if any questions or concerns Prescriptions: New ondansetron 4 mg tablet,disintegrating 4 mg PO Q8H PRN (Reason: nausea and vomiting) Qty: 10 RF: 0 No Action ondansetron 4 mg tablet,disintegrating 4 mg PO TID-QID PRN (Reason: nausea and vomiting) Qty: 10 RF: 0 metoclopramide HCl [Reglan] 10 mg tablet 10 mg PO Q6H PRN (Reason: nausea and vomiting) Qty: 20 RF: 0 ondansetron 4 mg tablet,disintegrating 4 mg PO Q8H PRN (Reason: nausea and vomiting) Qty: 10 RF: 0
[2021-05-27] MEDS: SODIUM CHLORIDE 0.9% 1,000 ML 1000 ML IV ×4 (03:04→06:56)
[2021-05-27 03:07] LABS: Alanine Aminotransferase 60 IU/L (<50); Albumin 3.9 g/dL (3.5-5.0); Albumin Globulin Ratio 1.3 (1.0-2.8); Alkaline Phosphatase 53 U/L (38-126); Aspartate Aminotransferase 60 IU/L (17-59); Bilirubin Total 0.4 mg/dL (0.2-1.3); Blood Urea Nitrogen 33 mg/dL (9-20); Calcium 8.8 mg/dL (8.4-10.2); Carbon Dioxide 29 mmol/L (22-32); Chloride 93 mmol/L (98-107); Estimated Glomerular Filt Rate 21.8 mL/min (>60); Glucose 179 mg/dL (70-100); HEMOLYSIS < 15 (0-50); Potassium 4.2 mmol/L (3.4-5.1); Sodium 133 mmol/L (137-145); Total Protein 6.9 g/dL (6.3-8.2)
[2021-05-27 03:08] LABS: Add Manual Diff / Slide Review NO; Basophils Absolute Auto 0 /uL (0-100); Basophils Percent Auto 0.3 % (0-2); Eosinophils Absolute Auto 0 /uL (0-450); Eosinophils Percent Auto 0.1 % (2-4); Hematocrit 37.9 % (41-53); Hemoglobin 12.5 g/dL (13.5-17.5); Lymphocytes Absolute Auto 800 /uL (1100-4500); Lymphocytes Percent Auto 12.1 % (25-40); Mean Corpuscular HGB Conc 33.1 % (30-36); Mean Corpuscular Volume 81.6 fL (80-100); Monocytes Absolute Auto 600 /uL (0-900); Monocytes Percent Auto 8.7 % (3-14); Neutrophils Absolute Auto 5100 /uL (1500-7000); Neutrophils Percent Auto 78.8 % (50-75); Platelet Count 272 X10^3/uL (150-400); Red Blood Cell Count 4.65 X10^6/uL (4.5-5.9); Red Cell Distribution Width 13.5 % (11.6-14.8); White Blood Cell Count 6.4 X10^3/uL (4.5-11.0)
[2021-05-27 03:10] LABS: Ketones (Beta-Hydroxybutyrate) 0.67 mmol/L (<0.27)
[2021-05-27 03:17] LABS: COVID19 -Nasal RAPID POSITIVE (Negative)
[2021-05-27] MEDS: KETOROLAC 30 MG/ML VIAL 15 MG IV (03:28)
[2021-05-27 04:03] LABS: Adenovirus Not Detected (Not Detect); B. parapertussis Not Detected (Not Detecte); Bordetella pertussis Not Detected (Not Detecte); Chlamydophila pneumoniae Not Detected (Not Detect); Coronavirus 229E Not Detected (Not Detect); Coronavirus HKU1 Not Detected (Not Detect); Coronavirus NL 63 Not Detected (Not Detect); Coronavirus OC43 Not Detected (Not Detect); Human Metapneumovirus Not Detected (Not Detect); Human Rhinovirus/Enterovirus Not Detected (Not Detect); Influenza A Not Detected (Not Detect); Influenza B Not Detected (Not Detect); Mycoplasma pneumoniae Not Detected (Not Detect); Parainfluenza Virus 1 Not Detected (Not Detect); Parainfluenza Virus 2 Not Detected (Not Detect); Parainfluenza Virus 3 Not Detected (Not Detect); Parainfluenza Virus 4 Not Detected (Not Detect); Respiratory Syncytial Virus Not Detected (Not Detect); SARS- CoV-2 Detected (Not Detecte)
[2021-05-27] MEDS: MORPHINE 4 MG/ML INJ IV (04:25)
[2021-05-27] MEDS: METOCLOPRAMIDE 10 MG/2 ML INJ IV (05:50)
[2021-05-27] MEDS: diphenhydrAMINE 50 MG/ML VIAL 12.5 MG IV (05:50)
[2021-05-27 06:13] LABS: BUN Creatinine Ratio 12.2 (6-22); Blood Urea Nitrogen 32 mg/dL (9-20); Carbon Dioxide 23 mmol/L (22-32); Chloride 104 mmol/L (98-107); Estimated Glomerular Filt Rate 28.5 mL/min (>60); Glucose 112 mg/dL (70-100); Sodium 134 mmol/L (137-145)
[2021-05-27 06:44] LABS: Calcium 7.2 mg/dL (8.4-10.2); HEMOLYSIS 53 (0-50)
[2021-05-27 07:09] LABS: Appearance Urine UA SL CLOUDY; Bilirubin Urine UA NEGATIVE (NEGATIVE); Color Urine UA YELLOW; Glucose Urine UA 1+ g/dL (Negative); Ketones Urine UA TRACE (NEGATIVE); Leukocyte Esterase Urine UA NEGATIVE (NEGATIVE); Nitrite Urine UA NEGATIVE (Negative); Occult Blood Urine UA 2+ (Negative); Protein Urine UA 3+ (Negative); Urobilinogen Urine UA 0.2 E.U./dL (0.2); pH Urine UA 5.5 (4.5-8.0)
[2021-05-27 07:11] LABS: UR Morphine/Opiate cutoff 300 Positive (Negative); Ur Creatinine Normal (Normal); Ur Specific Gravity Normal (Normal); Urine Amphetamines Negative (Negative); Urine Barbiturates Negative (Negative); Urine Benzodiazepines Negative (Negative); Urine Cocaine Negative (Negative); Urine MDMA Negative (Negative); Urine Methadone Negative (Negative); Urine Methamphetamines Negative (Negative); Urine Oxycodone Negative (Negative); Urine Phencyclidine Negative (Negative); Urine Tetrahydrocannabinol Negative (Negative); Urine Tricyclic Antidepressant Negative (Negative); Urine pH Normal (Normal)
[2021-05-27 07:22] LABS: Bacteria Urine Many (>30); Culture Indicated Urine Specimen Cultured; Granular Casts Urine 5-10/LPF; RBC Urine 0-1/HPF (0-5/HPF); Squamous Epithelial Cell Urine 1-5 /HPF (0-5/HPF); WBC Urine 5-10/HPF (0-5/HPF)
== END 2021-05-27 09:09 | disposition home or self-care (01) ==
PROVIDERS: Emergency Medicine; Emergency Provider Emergency Medicine
DX: U07.1 COVID-19 (principal)
CPT/HCPCS: 36415; 51798; 71045; 80048; 80053; 80305; 81001; 82009; 82962; 85025; 87086; 87633; 87635; 96361; 96374; 96375; 99284; C9803; J1200; J1885; J2270; J2405; J2765

== ENCOUNTER 2021-05-28 18:56 | Emergency (ER) | payer OTHER, SELFPAY ==
[2021-05-28] VITALS (7 sets, daily range): BP systolic 144–195; BP diastolic 80–92; PULSE 78–99; RESP 16–22; TEMP 37.2; O2SAT 91–97; BMI 23.5
--- NOTE | 2021-05-28 20:15 | ED_ITS ---
HPI - Nausea/Vomiting/Diarrhea General Chief complaint: Nausea/Vomiting/Diarrhea Stated complaint: COVID POSTIVE, CANT KEEP ANYTHING DOWN Time Seen by Provider: 05/28/21 19:33 Source: patient Mode of arrival: Ambulatory Limitations: no limitations History of Present Illness HPI Narrative: Patient is a 31-year-old male type 1 diabetic on insulin pump presenting stay with known COVID vomiting fever chills and body aches. He was diagnosed with COVID 10 days ago. He was seen and evaluated here on 05/27/2021 with intractable vomiting. He was given fluids and Zofran. He said he went home and continued to vomit. He says his sugars have been 100-200 range. Does not want to go home until he keep down solids. He has no cough or shortness of breath O2 remains at 98% on room air. He really denies any abdominal pain. He has not had any significant diarrhea. Related Data Previous Rx's Medication Instructions Recorded ondansetron 4 mg disintegrating 4 mg PO TID-QID PRN #10 tab 03/04/21 tablet ondansetron 4 mg disintegrating 4 mg PO Q8H PRN #10 tab 05/27/21 tablet metoclopramide HCl 10 mg tablet 10 mg PO Q6H PRN #20 tab 05/28/21 (Reglan) ondansetron 4 mg disintegrating 4 mg PO Q8H PRN #10 tab 05/28/21 tablet Allergies Allergy/AdvReac Type Severity Reaction Status Date / Time No Known Drug Allergies Allergy Verified 05/28/21 19:16 Review of Systems Review of Systems Narrative: GENERAL: + positive fever,+ body aches HEENT: Denies sinus pain, ear pain, sore throat, difficulty swallowing, neck pain RESPIRATORY: Denies dyspnea, cough, wheezing, hemoptysis, sputum. CARDIOVASCULAR: Denies chest pain, palpitations, orthopnea, edema GASTROINTESTINAL: See HPI : Denies dysuria, frequency, incontinence, hematuria, urinary retention, flank pain. MUSCULOSKELETAL: Denies weakness, joint pain, or bony pain SKIN: No rash, no erythema, no pruritus NEUROLOGIC: Denies weakness, dizziness, headache, numbness, change in speech, confusion PSYCHIATRIC: No concerning psychosocial issues. 12 point review of systems is negative except for those stated above and HPI Patient History Social History Smoking Status: Never smoker Smoking Status: Never smoker alcohol intake frequency: 0-2 drinks per day Substance Use Type: does not use Exam Initial Vital Signs Initial Vital Signs: Vital Signs Temperature 99 F 05/28/21 19:00 Pulse Rate 94 H 05/28/21 19:00 Respiratory Rate 22 05/28/21 19:00 Blood Pressure 188/90 H 05/28/21 19:00 Pulse Oximetry 95 05/28/21 19:00 GENERAL: Alert 31-year-old male holding bag of vomiting HEENT: Head atraumatic,EOMI, pupils reactive, face symmetric, moist mucous membranes CARDIOVASCULAR: Regular rate and rhythm without murmurs, rubs or gallops. RESPIRATORY: Breath sounds equal bilaterally, no wheezes rales or rhonchi. ABDOMEN: Soft, nontender. Normoactive bowel sounds all 4 quadrants. No guarding or rebound. : No CVA tenderness EXTREMITIES: Normal range of motion, no clubbing or edema. Neurovascularly intact NEUROLOGICAL: Alert and oriented x4.Normal gait and speech. SKIN: Warm, dry, no laceration, no petechiae, no rashes or lesions. Course Orders Ordered: ED Orders 05/28/21 19:10 Complete Blood Count AUTO DIFF Stat Comprehensive Metabolic Panel Stat Ketones (Beta-Hydroxybutyrate) Stat Lactate (Lactic Acid) Stat Lipase Stat 05/28/21 21:31 Urine Microscopic Stat Discontinued Medications Sodium Chloride (Normal Saline 0.9%) 1,000 mls @ 1,000 mls/hr IV BOLUS ONE Stop: 05/28/21 21:16 Last Infusion: 05/28/21 21:46 Dose: 0 mls/hr Documented by: Admin: 05/28/21 20:22 Dose: 1,000 mls/hr Documented by: ATAYLOR Ondansetron HCl (Ondansetron 4 Mg/2 Ml Inj) 4 mg IV NOW ONE Stop: 05/28/21 20:18 Last Admin: 05/28/21 20:22 Dose: 4 mg Documented by: ATAYLOR Ondansetron HCl (Ondansetron 4 Mg Odt Prepack) 1 bottle MISC SEEINSTR ONE Stop: 05/28/21 23:12 Last Admin: 05/28/21 23:15 Dose: 1 bottle Documented by: DBROYLE Pantoprazole Sodium (Pantoprazole 40 Mg Vial) 40 mg IV NOW ONE Stop: 05/28/21 20:18 Last Admin: 05/28/21 20:22 Dose: 40 mg Documented by: CECI Vital Signs Vital signs: Vital Signs - 8 hr 05/28/21 19:00 05/28/21 19:30 05/28/21 20:00 Temperature 99 F Pulse Rate 94 H 99 H 95 H Respiratory Rate 22 17 20 Blood Pressure 188/90 H 195/90 H 183/90 H Pulse Oximetry 95 95 96 05/28/21 20:30 05/28/21 22:00 05/28/21 22:30 Temperature Pulse Rate 97 H 92 H 90 Respiratory Rate 16 Blood Pressure 177/91 H 166/92 H 163/86 H Pulse Oximetry 97 93 91 05/28/21 23:00 Temperature Pulse Rate 78 Respiratory Rate Blood Pressure 144/80 H Pulse Oximetry 93 MDM - Nausea/Vomiting/Diarrhea Lab Data Result diagrams: 05/28/21 19:10 05/28/21 19:10 Labs: Lab Results 05/28/21 05/28/21 05/28/21 Range/Units 19:10 19:10 19:10 WBC 6.3 (4.5-11.0) X10^3/uL RBC 3.96 L (4.5-5.9) X10^6/uL Hgb 10.7 L (13.5-17.5) g/dL Hct 32.9 L (41-53) % MCV 83.0 (80-100) fL MCH 27.0 (26-34) PG MCHC 32.5 (30-36) % RDW 14.0 (11.6-14.8) % Plt Count 364 (150-400) X10^3/uL Neut % (Auto) 78.3 H (50-75) % Lymph % (Auto) 9.7 L (25-40) % [place] % (Auto) 11.5 (3-14) % Eos % (Auto) 0.2 L (2-4) % Baso % (Auto) 0.3 (0-2) % Neut # (Auto) 4900 (8758-9270) /uL Lymph # (Auto) 600 L (9584-8842) /uL [place] # (Auto) 700 (0-900) /uL Eos # (Auto) 0 (0-450) /uL Baso # (Auto) 0 (0-100) /uL Sodium 136 L (137-145) mmol/L Potassium 4.4 (3.4-5.1) mmol/L Chloride 100 (98-107) mmol/L Carbon Dioxide 25 (22-32) mmol/L BUN 23 H (9-20) mg/dL Creatinine 2.51 H (0.66-1.25) mg/dL Estimated GFR 29.9 L (>60) mL/min BUN/Creatinine Ratio 9.2 (6-22) Glucose 187 H (70-100) mg/dL Lactate 1.4 (0.7-2.1) mmol/L Calcium 8.7 (8.4-10.2) mg/dL Total Bilirubin 0.3 (0.2-1.3) mg/dL AST 57 (17-59) IU/L ALT 62 H (<50) IU/L Alkaline Phosphatase 52 (38-126) U/L Total Protein 6.4 (6.3-8.2) g/dL Albumin 3.4 L (3.5-5.0) g/dL Globulin 3.0 (1.7-4.1) g/dL Albumin/Globulin Ratio 1.1 (1.0-2.8) Lipase 144 (23-300) U/L Urine RBC (0-5/HPF) Urine WBC (0-5/HPF) Urine Bacteria (None) Ur Culture Indicated? Ketones 2.41 H (<0.27) mmol/L 05/28/21 Range/Units 21:31 WBC (4.5-11.0) X10^3/uL RBC (4.5-5.9) X10^6/uL Hgb (13.5-17.5) g/dL Hct (41-53) % MCV (80-100) fL MCH (26-34) PG MCHC (30-36) % RDW (11.6-14.8) % Plt Count (150-400) X10^3/uL Neut % (Auto) (50-75) % Lymph % (Auto) (25-40) % [place] % (Auto) (3-14) % Eos % (Auto) (2-4) % Baso % (Auto) (0-2) % Neut # (Auto) (1350-1190) /uL Lymph # (Auto) (7362-9423) /uL [place] # (Auto) (0-900) /uL Eos # (Auto) (0-450) /uL Baso # (Auto) (0-100) /uL Sodium (137-145) mmol/L Potassium (3.4-5.1) mmol/L Chloride (98-107) mmol/L Carbon Dioxide (22-32) mmol/L BUN (9-20) mg/dL Creatinine (0.66-1.25) mg/dL Estimated GFR (>60) mL/min BUN/Creatinine Ratio (6-22) Glucose (70-100) mg/dL Lactate (0.7-2.1) mmol/L Calcium (8.4-10.2) mg/dL Total Bilirubin (0.2-1.3) mg/dL AST (17-59) IU/L ALT (<50) IU/L Alkaline Phosphatase (38-126) U/L Total Protein (6.3-8.2) g/dL Albumin (3.5-5.0) g/dL Globulin (1.7-4.1) g/dL Albumin/Globulin Ratio (1.0-2.8) Lipase (23-300) U/L Urine RBC None seen (0-5/HPF) Urine WBC None seen (0-5/HPF) Urine Bacteria None seen (None) Ur Culture Indicated? Cult not indicated Ketones (<0.27) mmol/L Urine Dip Bedside Urine Glucose 1000 mg/dl Bedside Urine Bilirubin - Negative Bedside Urine Ketone + 15 Urine Specific [place] 1.020 Bedside Urine Occult Blood + Bedside Urine pH 6.0 Bedside Urine Protein +++ 300 Bedside Urine Urobilinogen +/- 1mg Bedside Urine Nitrite - Negative Bedside Urine Leukocytes - Negative Esterase MDM Narrative Medical decision making narrative: Patient has type 1 insulin-dependent diabetic at this time he does not have an anion gap he does have ketones. Creatinine is elevated at 2.4 but this is his baseline. He is overall feeling better. Abdomen is reexamined it is nontender. At this time no imaging is indicated. He has been given IV fluids Zofran and Protonix which seemed to have helped. He is now tolerating fluids. At this time I have educated him about oral rehydr ation techniques when to take anti nausea medications he liquids to drink to help keep him hydrated. At this time he understands. I will give him Reglan is in addition to Zofran he said Zofran previously was not helping. Hemoglobin and hematocrit are slightly lower than what they were 2 days ago but similar to his previous in March. No reports of rectal bleeding or hematemesis. Discharge Plan Departure Patient Disposition: Home Clinical Impression: COVID-19 virus infection, Gastroenteritis Instructions: DI for Viral Gastroenteritis -- Adult Activity Restrictions/Additional Instructions: 1) You have been diagnosed with gastroenteritis and COVID-19 2) What to do: Drink frequent but small amounts of fluids. I recommend Gatorade or a Gatorade-like product, as it has small amounts of [place] and salts that improve fluid retention. 3) Take medications as directed Reglan 10 mg every 6 hours if needed for nausea or vomiting Or Zofran 4 mg every 8 hours if needed for nausea around 4) Follow up with your primary care provider in 2-3 days 5) Return to ER if you should have any new or worsening symptoms such as, unable to hold down fluids despite use of anti-nausea medications and the small volume oral rehydration strategy. Prescriptions: New metoclopramide HCl [Reglan] 10 mg tablet 10 mg PO Q6H PRN (Reason: nausea and vomiting) Qty: 20 RF: 0 ondansetron 4 mg tablet,disintegrating 4 mg PO Q8H PRN (Reason: nausea and vomiting) Qty: 10 RF: 0 No Action ondansetron 4 mg tablet,disintegrating 4 mg PO TID-QID PRN (Reason: nausea and vomiting) Qty: 10 RF: 0 ondansetron 4 mg tablet,disintegrating 4 mg PO Q8H PRN (Reason: nausea and vomiting) Qty: 10 RF: 0
[2021-05-28] MEDS: PANTOPRAZOLE 40 MG VIAL IV (20:22)
[2021-05-28] MEDS: SODIUM CHLORIDE 0.9% 1,000 ML 1000 ML IV (20:22)
[2021-05-28] MEDS: ONDANSETRON 4 MG/2 ML INJ IV (20:22)
[2021-05-28 20:27] LABS: Add Manual Diff / Slide Review NO; Basophils Absolute Auto 0 /uL (0-100); Basophils Percent Auto 0.3 % (0-2); Eosinophils Absolute Auto 0 /uL (0-450); Eosinophils Percent Auto 0.2 % (2-4); Hematocrit 32.9 % (41-53); Hemoglobin 10.7 g/dL (13.5-17.5); Lymphocytes Absolute Auto 600 /uL (1100-4500); Lymphocytes Percent Auto 9.7 % (25-40); Mean Corpuscular HGB Conc 32.5 % (30-36); Monocytes Absolute Auto 700 /uL (0-900); Monocytes Percent Auto 11.5 % (3-14); Neutrophils Absolute Auto 4900 /uL (1500-7000); Neutrophils Percent Auto 78.3 % (50-75); Platelet Count 364 X10^3/uL (150-400); Red Blood Cell Count 3.96 X10^6/uL (4.5-5.9); White Blood Cell Count 6.3 X10^3/uL (4.5-11.0)
[2021-05-28 20:33] LABS: Lactate (Lactic Acid) 1.4 mmol/L (0.7-2.1)
[2021-05-28 20:34] LABS: Alanine Aminotransferase 62 IU/L (<50); Albumin 3.4 g/dL (3.5-5.0); Albumin Globulin Ratio 1.1 (1.0-2.8); Alkaline Phosphatase 52 U/L (38-126); Aspartate Aminotransferase 57 IU/L (17-59); BUN Creatinine Ratio 9.2 (6-22); Bilirubin Total 0.3 mg/dL (0.2-1.3); Blood Urea Nitrogen 23 mg/dL (9-20); Calcium 8.7 mg/dL (8.4-10.2); Carbon Dioxide 25 mmol/L (22-32); Chloride 100 mmol/L (98-107); Estimated Glomerular Filt Rate 29.9 mL/min (>60); Glucose 187 mg/dL (70-100); HEMOLYSIS < 15 (0-50); Lipase 144 U/L (23-300); Potassium 4.4 mmol/L (3.4-5.1); Sodium 136 mmol/L (137-145); Total Protein 6.4 g/dL (6.3-8.2)
[2021-05-28 20:37] LABS: Ketones (Beta-Hydroxybutyrate) 2.41 mmol/L (<0.27)
[2021-05-28 21:54] LABS: Bacteria Urine None Seen; RBC Urine None Seen (0-5/HPF); WBC Urine None Seen (0-5/HPF)
[2021-05-28 22:05] LABS: Culture Indicated Urine Cult Not Indicated
[2021-05-28] MEDS: ONDANSETRON 4 MG ODT PREPACK 1 BOTTLE MISC (23:15)
== END 2021-05-28 23:52 | disposition home or self-care (01) ==
PROVIDERS: Emergency Provider Emergency Medicine
DX: U07.1 COVID-19 (principal); K52.9 Noninfective gastroenteritis and colitis, unspecified; R11.2 Nausea with vomiting, unspecified
CPT/HCPCS: 36415; 80053; 81003; 81015; 82009; 83605; 83690; 85025; 96361; 96374; 96375; 99284; C9113; J2405

== ENCOUNTER → 2021-09-10 12:29 | Outpatient (CLI) | payer OTHER, SELFPAY ==
--- NOTE | 2021-09-10 12:30 | DI.US.S_ITS ---
PROCEDURE: US RENAL COMPLETE INDICATIONS: STAGE 4 CHRONIC KIDNEY DISEASE TECHNIQUE: Real-time scanning was performed of the kidneys and bladder, with image documentation. COMPARISON: None. FINDINGS: Kidneys: Kidneys are normal in size. Right kidney measures 9.3 cm long; left kidney measures 10.0 cm long. Right renal cortical thickness is 1.3 cm; left renal cortical thickness is 1.5 cm. Renal cortical echotexture is normal. No hydronephrosis or nephrolithiasis. No suspicious solid mass lesions. Bladder: Pre-void bladder volume is 162 mL. Post-void residual is 0 mL. Pre-void images demonstrate no intraluminal masses or stones. On pre-void images, no ureteral jets are noted with color Doppler interrogation. (Of note, ureteral jets may not be detectable in up to 25% of cases due to insufficient differences in specific gravity between ureteral and bladder urine). Miscellaneous: No free pelvic fluid. IMPRESSION: Normal size kidneys with no evidence of hydronephrosis. Otherwise unremarkable. Dictated by: Terence Magaña M.D. on 09/11/2021 at 16:10 Approved by: Terence Magaña M.D. on 09/11/2021 at 16:19
== END ==
PROVIDERS: PCP Family Medicine; Referring Provider Internal Medicine Nephrology; Visit Provider Internal Medicine Nephrology
DX: N18.4 Chronic kidney disease, stage 4 (severe) (principal); N32.0 Bladder-neck obstruction
CPT/HCPCS: 76770

== ENCOUNTER 2023-03-22 10:24 | Emergency (ER) | payer OTHER, SELFPAY ==
[2023-03-22 10:27] VITALS: BP 122/73; PULSE 92; RESP 14; TEMP 37.2; O2SAT 99; BMI 25.8
--- NOTE | 2023-03-22 10:37 | ED_ITS ---
HPI - URI/Sore Throat <Kalin Lu PA-C - Last Filed: 03/22/23 13:31> General Chief Complaint: Upper Respiratory Symptoms Stated Complaint: fluid in RT ear/sore throat/pop rocks in throat Time Seen by Provider: 03/22/23 10:36 Source: patient Mode of arrival: Ambulatory History of Present Illness HPI Narrative: 33-year-old male with past medical history type 1 diabetes, CKD stage 3 due to type 1 diabetes, seasonal allergies presents to the ED with 4 days of sore throat, cough. Patient also endorses some right-sided ear fullness. Denies fever, chills, nausea, vomiting, trouble swallowing, chest pain, shortness of breath, wheezing. Patient states that he usually takes Zyrtec for his allergies, has been experimenting with Claritin 4 days ago to see if it would give him better relief. Patient's symptoms started that day. Patient states that the most bothersome symptom is the cough, which is also causing him a sore throat. Related Data Home Medications Medication Instructions Recorded Confirmed amlodipine 10 mg tablet 10 mg PO DAILY 04/10/22 10/28/22 carvedilol 6.25 mg tablet 6.25 mg PO BID 04/10/22 10/28/22 lisinopril 30 mg tablet 30 mg PO DAILY 04/10/22 10/28/22 lovastatin 10 mg tablet 10 mg PO BEDTIME 04/10/22 10/28/22 metoprolol succinate 50 mg 50 mg PO DAILY 04/10/22 10/28/22 tablet,extended release 24 hr Previous Rx's Medication Instructions Recorded albuterol sulfate 90 mcg/actuation 2 puff inhalation Q4-6H PRN 04/10/22 aerosol inhaler shortness of breath or wheezing #8.5 grams blood sugar diagnostic (Blood #200 ea 04/29/22 Glucose Test strips) blood-glucose meter #1 ea 04/29/22 insulin aspart U-100 100 unit/mL See Rx Instructions continuous 09/09/22 subcutaneous solution subcutaneous infusion USEASDIRECTD #20 mL montelukast 10 mg tablet 10 mg PO DAILY #90 tabs 10/28/22 (Singulair) terbinafine HCl 250 mg tablet 125 mg PO DAILY #42 tabs 10/28/22 benzonatate 200 mg capsule 200 mg PO TID PRN cough #30 caps 03/22/23 Allergies Allergy/AdvReac Type Severity Reaction Status Date / Time No Known Drug Allergies Allergy Verified 03/22/23 10:31 Review of Systems <Kalin Lu PA-C - Last Filed: 03/22/23 13:31> Review of Systems ROS Unobtainable: All systems reviewed & are unremarkable except as noted in HPI and below Constitutional Constitutional: Denies chills, Denies fatigue, Denies fever(s), Denies frequent falls, Denies lethargy and Denies weakness Eyes Eyes: Denies change in vision, Denies eye discharge, Denies irritation and Denies loss of vision ENT Ears, Nose, Mouth, and Throat: Denies change in voice, Denies dizziness, Denies neck pain, Reports sore throat and Denies throat swelling Comments: R ear fullness Cardiovascular Cardiovascular: Denies chest pain, Denies irregular heart rhythm, Denies lightheadedness, Denies palpitations, Denies dyspnea, Denies dyspnea on exertion and Denies orthopnea Respiratory Respiratory: Reports cough, Denies dyspnea, Denies dyspnea on exertion and Denies wheezing Gastrointestinal Gastrointestinal: Denies abdominal pain, Denies change in bowel habits, Denies diarrhea, Denies nausea and Denies vomiting Genitourinary Genitourinary: Denies hematuria, Denies flank pain, Denies urinary incontinence and Denies urinary urgency Musculoskeletal Musculoskeletal: Denies back pain, Denies muscle weakness, Denies neck pain, Denies numbness and Denies tingling Integumentary/Breasts Skin/Breast: Denies pruritus, Denies erythema, Denies rash and Denies wounds Neurologic Neurologic: Denies behavioral changes, Denies confusion, Denies dizziness, Denies frequent falls, Denies loss of vision, Denies numbness, Denies tingling and Denies weakness Psychiatric Psychiatric: Denies anxiety, Denies behavioral changes, Denies confusion, Denies depression, Denies homicidal ideation and Denies suicidal ideation Endocrine Endocrine: Denies fatigue, Denies flushing and Denies palpitations Hematologic/Lymphatic Hematologic/Lymphatic: Denies easy bruising Allergic/Immunologic Allergic/Immunologic: Denies urticaria, Denies throat swelling and Denies wheezing Patient History <Kalin Lu PA-C - Last Filed: 03/22/23 13:31> Medical History Chronic cough COVID-19 virus infection Environmental allergies IDDM (insulin dependent diabetes mellitus) Social History Smoking Status: Never smoker alcohol intake: current (1-3 drinks per week ) substance use type: does not use Smoking Status: Never smoker alcohol intake frequency: 0-2 drinks per day Substance Use Type: does not use Exam <Kalin Lu PA-C - Last Filed: 03/22/23 13:31> Narrative Exam Narrative: Const General:?cooperative, healthy appearing and comfortable [facility] Head:?normal to inspection Ears:?hearing grossly normal bilaterally; left tympanum normal; right tympanum appears to have fluid behind it, however not erythematous or bulging. Nose:?external nose normal Face and sinus:?normal facial exam and sinuses nontender Mouth:?oral mucosae normal Throat:?posterior oropharynx normal Eyes General:?appearance normal, both eyes and all related structures Neck Neck:?normal visual inspection and no lymphadenopathy noted Resp Effort & Inspection:?normal respiratory effort Auscultation:?clear to auscultation bilaterally Cardio Rate:?regular rate Rhythm:?regular rhythm Neuro General:?patient alert, patient awake and patient oriented x3 Initial Vital Signs Initial Vital Signs: Vital Signs Temperature 98.9 F 03/22/23 10:27 Pulse Rate 92 H 03/22/23 10:27 Respiratory Rate 14 03/22/23 10:27 Blood Pressure 122/73 03/22/23 10:27 Pulse Oximetry 99 03/22/23 10:27 Oxygen Delivery Method Room Air 03/22/23 10:27 <Fabien Hay MD - Last Filed: 03/23/23 07:06> Initial Vital Signs Initial Vital Signs: Vital Signs Temperature 98.9 F 03/22/23 10:27 Pulse Rate 92 H 03/22/23 10:27 Respiratory Rate 14 03/22/23 10:27 Blood Pressure 122/73 03/22/23 10:27 Pulse Oximetry 99 03/22/23 10:27 Oxygen Delivery Method Room Air 03/22/23 10:27 Course <Kalin Lu PA-C - Last Filed: 03/22/23 13:31> Orders Ordered: ED Orders 03/22/23 10:47 Strep Grp A by PCR Rapid Stat Throat Culture Stat Vital Signs Vital signs: Vital Signs - 8 hr 03/22/23 10:27 03/22/23 11:19 Temperature 98.9 F Pulse Rate 92 H 78 Respiratory Rate 14 17 Blood Pressure 122/73 128/78 Pulse Oximetry 99 99 Oxygen Delivery Method Room Air Room Air <Fabien Hay MD - Last Filed: 03/23/23 07:06> Orders Ordered: ED Orders 03/22/23 10:47 Strep Grp A by PCR Rapid Stat Throat Culture Stat Vital Signs Vital signs: Vital Signs - 8 hr 03/22/23 10:27 03/22/23 11:19 Temperature 98.9 F Pulse Rate 92 H 78 Respiratory Rate 14 17 Blood Pressure 122/73 128/78 Pulse Oximetry 99 99 Oxygen Delivery Method Room Air Room Air MDM - URI/Sore Throat <Kalin Lu PA-C - Last Filed: 03/22/23 13:31> Lab Data Labs: Lab Results 03/22/23 Range/Units 10:47 Group A Strep (PCR) Negative (Negative) MDM Narrative Medical decision making narrative: 33-year-old male with past medical history type 1 diabetes, CKD stage 3 due to type 1 diabetes, seasonal allergies presents to the ED with 4 days of sore throat, cough. Concern for strep pharyngitis versus viral pharyngitis versus viral URI versus eustachian tube dysfunction versus other. Will obtain strep swab and strep culture. Negative strep test. Will treat cough with Tessalon Perles. Recommend [id number] Flonase for eustachian tube dysfunction. Recommend follow-up with PCP. ED return precautions discussed with patient. Patient verbalized understanding. <Fabien Hay MD - Last Filed: 03/23/23 07:06> Lab Data Labs: Lab Results 03/22/23 Range/Units 10:47 Group A Strep (PCR) Negative (Negative) Discharge Plan Departure Patient Disposition: Home Clinical Impression: Upper respiratory infection Instructions: DI for Viral Upper Respiratory Infection -- Adult Activity Restrictions/Additional Instructions: You were evaluated in the ED today for a cough and sore throat, ear fullness. Your strep swab was negative, we have sent the sample for culture, will let you know if it is positive. It does appear that you have some fluid behind your right eardrum, however it is not infected. This is common when you have a viral upper respiratory infection, you may use Flonase for it. You were also being prescribed some cough medication for symptom relief. You may take Tylenol for aches and pains. Please follow-up with your PCP as soon as possible. Please return to the ED if you have worsening symptoms, chest pain, shortness of breath. Prescriptions: New benzonatate 200 mg capsule 200 mg PO TID PRN (Reason: cough) Qty: 30 0RF No Action (DME) Blood Glucose Test Strip See Rx Instructions .ROUTE .MEDSUPPLY Qty: 200 6RF Rx Instructions: Use to test blood glucose Q4-6H DAILY , BRAND PER INSURANCE (DME) blood-glucose meter Misc See Rx Instructions .Route Qty: 1 0RF Rx Instructions: BRAND PER INSURANCE, Use to check blood glucose Q4-6H insulin aspart U-100 100 unit/mL solution See Rx Instructions continuous subcutaneous infusion USEASDIRECTD Qty: 20 4RF Rx Instructions: USE 0.8 UNITS PER HOUR IN INSULIN PUMP THEN BOLUS 6 UNITS PER MEAL via continuous subcutaneous infusion amlodipine 10 mg tablet 10 mg PO DAILY Patient Comments: TAKE 1 TABLET BY MOUTH DAILY FOR HIGH BLOOD PRESSURE lovastatin 10 mg tablet 10 mg PO BEDTIME Patient Comments: TAKE 1 TABLET BY MOUTH WITH THE EVENING MEAL FOR HIGH CHOLESTEROL metoprolol succinate 50 mg tablet extended release 24 hr 50 mg PO DAILY Patient Comments: TAKE 1 TABLET BY MOUTH EVERY NIGHT carvedilol 6.25 mg tablet 6.25 mg PO BID Rx Instructions: must administer with a meal/food lisinopril 30 mg tablet 30 mg PO DAILY albuterol sulfate 90 mcg/actuation HFA aerosol inhaler 2 puff inhalation Q4-6H PRN (Reason: shortness of breath or wheezing) Qty: 8.5 2RF montelukast [Singulair] 10 mg tablet 10 mg PO DAILY Qty: 90 1RF terbinafine HCl 250 mg tablet 125 mg PO DAILY Qty: 42 0RF Referrals: Lucinda Herman DO [Primary Care Provider] - Stand Alone Forms: Patient Portal/API <Fabien Hay MD - Last Filed: 03/23/23 07:06> Cosign ED Attending Hasmukh Attestation: I was immediately available in the department for consultation. ?This documentation has been reviewed and I agree with assessment and plan. Supervised by Fabien Hay MD
[2023-03-22 11:01] LABS: Strep Grp A by PCR Rapid Negative (Negative)
[2023-03-22 11:19] VITALS: BP 128/78; PULSE 78; RESP 17; O2SAT 99
== END 2023-03-22 11:21 | disposition home or self-care (01) ==
PROVIDERS: Emergency Provider Student in an Organized Health Care Education/Training Program; PCP Family Medicine
DX: J06.9 Acute upper respiratory infection, unspecified (principal); R05.9 Cough, unspecified
CPT/HCPCS: 87070; 87651; 99281; 99282

== ENCOUNTER → 2023-06-25 11:34 | Outpatient (CLI) | payer OTHER, SELFPAY ==
[2023-06-25 13:22] LABS: Alanine Aminotransferase 20 IU/L (<50); Albumin 4.1 g/dL (3.5-5.0); Albumin Globulin Ratio 1.5 (1.0-2.8); Alkaline Phosphatase 70 U/L (38-126); Aspartate Aminotransferase 18 IU/L (17-59); BUN Creatinine Ratio 11.3 (6-22); Bilirubin Total 0.6 mg/dL (0.2-1.3); Blood Urea Nitrogen 26 mg/dL (9-20); Calcium 9.5 mg/dL (8.4-10.2); Carbon Dioxide 29 mmol/L (22-32); Chloride 101 mmol/L (98-107); Estimated Glomerular Filt Rate 37 mL/min (>60); Globulin 2.8 g/dL (1.7-4.1); Glucose 105 mg/dL (70-100); HEMOLYSIS < 15 (0-50); Potassium 4.7 mmol/L (3.4-5.1); Sodium 137 mmol/L (137-145); Total Protein 6.9 g/dL (6.3-8.2)
[2023-06-25 13:24] LABS: Hemoglobin A1C% w Est Avg Glu 6.9 % (4.0-6.0)
[2023-06-25 16:19] LABS: Microalbumi Creatinin Ratio Ur 8730.5 ug/mg CR (<30)
== END ==
PROVIDERS: PCP Family Medicine; Referring Provider Family Medicine; Visit Provider Family Medicine
DX: E10.22 Type 1 diabetes mellitus with diabetic chronic kidney disease (principal); N18.30 Chronic kidney disease, stage 3 unspecified; I12.9 Hypertensive chronic kidney disease with stage 1 through stage 4 chronic kidney disease, or unspecified chronic kidney disease; R74.01 Elevation of levels of liver transaminase levels
CPT/HCPCS: 36415; 80053; 82043; 82570; 83036

== ENCOUNTER → 2024-11-09 09:58 | Outpatient (CLI) | payer OTHER, SELFPAY ==
[2024-11-09 10:30] LABS: Add Manual Diff / Slide Review NO; Basophils Absolute Auto 100 /uL (0-100); Basophils Percent Auto 0.7 % (0-2); Eosinophils Absolute Auto 400 /uL (0-450); Eosinophils Percent Auto 5.6 % (2-4); Hematocrit 39.4 % (41-53); Hemoglobin 13.1 g/dL (13.5-17.5); Lymphocytes Absolute Auto 1000 /uL (1100-4500); Lymphocytes Percent Auto 13.3 % (25-40); Mean Corpuscular HGB Conc 33.4 % (30-36); Mean Corpuscular Hemoglobin 28.1 PG (26-34); Mean Corpuscular Volume 84.1 fL (80-100); Monocytes Absolute Auto 700 /uL (0-900); Monocytes Percent Auto 9.4 % (3-14); Neutrophils Absolute Auto 5400 /uL (1500-7000); Platelet Count 389 X10^3/uL (150-400); Red Blood Cell Count 4.68 X10^6/uL (4.5-5.9); White Blood Cell Count 7.6 X10^3/uL (4.5-11.0)
[2024-11-09 10:41] LABS: Hemoglobin A1C% w Est Avg Glu 7.3 % (4.0-6.0)
[2024-11-09 10:53] LABS: Alanine Aminotransferase 21 IU/L (<50); Albumin 4.6 g/dL (3.5-5.0); Albumin Globulin Ratio 1.6 (1.0-2.8); Alkaline Phosphatase 67 U/L (38-126); Aspartate Aminotransferase 19 IU/L (17-59); Bilirubin Total 0.5 mg/dL (0.2-1.3); Blood Urea Nitrogen 35 mg/dL (9-20); Calcium 9.5 mg/dL (8.4-10.2); Carbon Dioxide 24 mmol/L (22-32); Chloride 107 mmol/L (98-107); Estimated Glomerular Filt Rate 28 mL/min (>60); Globulin 2.8 g/dL (1.7-4.1); Glucose 140 mg/dL (70-100); HEMOLYSIS < 15 (0-50); Sodium 140 mmol/L (137-145); Total Protein 7.4 g/dL (6.3-8.2)
[2024-11-09 10:55] LABS: Potassium 5.4 mmol/L (3.4-5.1)
[2024-11-09 11:20] LABS: TSH w/ Reflex to FT4 4.94 uIU/mL (0.47-4.68)
[2024-11-09 11:45] LABS: Free T4, Direct Thyroxine 0.77 ng/dL (0.78-2.19)
[2024-11-11 11:41] LABS: Parathyroid Hormone Int 223 pg/mL (15-65)
== END ==
LOC: LAB 10:00
PROVIDERS: PCP Nurse Practitioner Family; Referring Provider Nurse Practitioner Family; Visit Provider Nurse Practitioner Family
DX: N25.81 Secondary hyperparathyroidism of renal origin (principal); D63.1 Anemia in chronic kidney disease; D70.9 Neutropenia, unspecified; E10.22 Type 1 diabetes mellitus with diabetic chronic kidney disease; I12.9 Hypertensive chronic kidney disease with stage 1 through stage 4 chronic kidney disease, or unspecified chronic kidney disease; N18.30 Chronic kidney disease, stage 3 unspecified
CPT/HCPCS: 36415; 80053; 83036; 83970; 84439; 84443; 85025

== ENCOUNTER → 2025-07-05 15:49 | Outpatient (CLI) | payer OTHER, SELFPAY ==
[2025-07-05 18:02] LABS: Hemoglobin A1C% w Est Avg Glu 7.0 % (4.0-6.0)
[2025-07-05 18:03] LABS: Add Manual Diff / Slide Review NO; Hematocrit 39.5 % (41-53); Hemoglobin 13.4 g/dL (13.5-17.5); Lymphocytes Absolute Auto 1500 /uL (1100-4500); Mean Corpuscular HGB Conc 33.9 % (30-36); Mean Corpuscular Hemoglobin 28.5 PG (26-34); Mean Corpuscular Volume 84.2 fL (80-100); Platelet Count 406 X10^3/uL (150-400)
[2025-07-05 18:23] LABS: Blood Urea Nitrogen 42 mg/dL (9-20); Calcium 9.6 mg/dL (8.4-10.2); Carbon Dioxide 21 mmol/L (22-32); Chloride 109 mmol/L (98-107); Estimated Glomerular Filt Rate 26 mL/min (>60); Glucose 56 mg/dL (70-99); HEMOLYSIS < 15 (0-50); Phosphorous 3.8 mg/dL (2.5-4.5); Potassium 4.9 mmol/L (3.4-5.1); Sodium 141 mmol/L (137-145)
[2025-07-05 18:38] LABS: T4 Total Thyroxine 5.39 ug/dL (5.5-11.0)
[2025-07-05 18:52] LABS: Thyroid Stimulating Hormone 2.90 uIU/mL (0.47-4.68)
== END ==
PROVIDERS: PCP Nurse Practitioner Family; Referring Provider Internal Medicine Endocrinology, Diabetes & Metabolism; Visit Provider Internal Medicine Endocrinology, Diabetes & Metabolism
DX: E83.30 Disorder of phosphorus metabolism, unspecified (principal); D63.1 Anemia in chronic kidney disease; D70.9 Neutropenia, unspecified; E10.65 Type 1 diabetes mellitus with hyperglycemia; N05.9 Unspecified nephritic syndrome with unspecified morphologic changes; N25.81 Secondary hyperparathyroidism of renal origin
CPT/HCPCS: 36415; 80048; 83036; 83970; 84100; 84436; 84443; 85025